=== PATIENT | male | born 1965 | race African-American/Black ===

== ENCOUNTER 2018-09-25 01:22 | Emergency (ER) | payer SELFPAY ==
[~2018-09-25] VITALS: Ht 182.9 cm; Wt 118.0 kg
[2018-09-25] MEDS ORDERED: MORPHINE SULFATE 4 MG/ML CPJ (NOT FOR IM USE) IV STA (01:49)
[2018-09-25] MEDS ORDERED: NITROGLYCERIN 0.4MG TABLET SL SL PRN (02:00)
[2018-09-25 02:27] VITALS: BP 137/80
[2018-09-25] MEDS ORDERED: ONDANSETRON HCL 4MG/2ML INJ IV ONE (02:30)
[2018-09-25 03:00] LABS: BASOPHILS % 0.5 % (0.0-2.0); HEMATOCRIT. 45.5 % (42.0-52.0); HEMOGLOBIN. 14.8 g/dL (14.0-18.0); LYMPHOCYTES % 18.4 % (20.0-50.0); MEAN CORPUSCULAR HEMOGLOBIN 28.2 pg (28.0-32.0); MEAN CORPUSCULAR VOLUME 86.9 fL (80.0-94.0); MEAN PLATELET VOLUME 8.7 fl (7.4-10.4); NEUTROPHILS % 74.1 % (40.0-76.0); PLATELET 267 x1000/uL (130-400); RED BLOOD CELL COUNT 5.23 mill/uL (4.7-6.1)
[2018-09-25 03:05] LABS: CHLORIDE 108 mEq/L (98-107)
[2018-09-25 03:08] LABS: INR 1.1; PARTIAL THROMBOPLASTIN TIME 26.1 sec (23.4-31.0); PROTHROMBIN TIME 11.1 sec (9.1-11.1)
== END 2018-09-25 04:56 | disposition left against medical advice (07) ==
LOC: ER 01:22 → CANBEDREQ 05:20
DX: R07.2 Precordial pain (principal); I11.0 Hypertensive heart disease with heart failure; I50.9 Heart failure, unspecified
CPT/HCPCS: 36415; 71045; 80053; 83880; 84484; 85025; 85610; 85730; 93005; 96374; 96375; 99284; J2270; J2405